=== PATIENT | female | born 1995 | race African-American/Black ===

== ENCOUNTER 2017-04-02 00:22 | Emergency (ER) | payer MEDICAID, OTHER ==
--- NOTE | 2017-04-02 02:19 | ER Document Report ---
ED General - General Chief Complaint: Pain All Over Stated Complaint: CHEST PAIN,HEADACHE Time Seen by Provider: 04/02/17 02:03 Notes: Patient is a 21-year-old female comes emergency department for chief complaint of pains in her chest, headache, and pain in both knees that started yesterday. She states the pain in her chest is the reason she came, she states it is intermittent, sharp, the middle of her chest, nonradiating, and comes and goes randomly. She states when it is hurting she feels like her heart rate is elevated. She denies shortness of breath, nausea or vomiting, fever chills, cough. She states that occasionally she will feel lightheaded as well. She denies any daily medications, she states she took ibuprofen for pain. She denies any recreational drugs. Mother at bedside. TRAVEL OUTSIDE OF THE [place] IN LAST 30 DAYS: No - Related Data Allergies/Adverse Reactions: No Known Allergies Allergy (Unverified 11/04/14 21:29) Past Medical History - General Information source: Patient - Social History Smoking Status: Never Smoker Frequency of alcohol use: None Drug Abuse: None Lives with: Family Family History: Reviewed & Not Pertinent Patient has suicidal ideation: No Patient has homicidal ideation: No Renal/ Medical History: Denies: Hx Peritoneal Dialysis Psychiatric Medical History: Reports: Hx Depression - Immunizations Immunizations up to date: Yes Review of Systems - Review of Systems Constitutional: No symptoms reported EENT: No symptoms reported Cardiovascular: See HPI Respiratory: See HPI Gastrointestinal: No symptoms reported Genitourinary: No symptoms reported Female Genitourinary: No symptoms reported Musculoskeletal: See HPI Skin: No symptoms reported Hematologic/Lymphatic: No symptoms reported Neurological/Psychological: No symptoms reported Physical Exam - Vital signs Vitals: Temp Pulse Resp BP Pulse Ox 98.4 F 74 18 126/88 H 100 04/02/17 01:05 04/02/17 01:05 04/02/17 01:05 04/02/17 01:05 04/02/17 01:05 Interpretation: Normal - General General appearance: Appears well, Alert In distress: None - HEENT Head: Normocephalic, Atraumatic Eyes: Normal Pupils: PERRL - Respiratory Respiratory status: No respiratory distress Chest status: Nontender Breath sounds: Normal Chest palpation: Normal - Cardiovascular Rhythm: Regular. No: Tachycardia Heart sounds: Normal auscultation, S1 appreciated, S2 appreciated Murmur: No - Abdominal Inspection: Normal Distension: No distension Bowel sounds: Normal Tenderness: Nontender. No: Tender, Guarding Organomegaly: No organomegaly - Back Back: Normal, Nontender - Extremities General upper extremity: Normal inspection, Nontender, Normal color, Normal ROM , Normal temperature General lower extremity: Normal inspection, Nontender, Normal color, Normal ROM , Normal temperature, Normal weight bearing. No: Rolando's sign - Neurological Neuro grossly intact: Yes Cognition: Normal Orientation: AAOx4 Marion Coma Scale Eye Opening: Spontaneous Marion Coma Scale Verbal: Oriented Marion Coma Scale Motor: Obeys Commands Michael Coma Scale Total: 15 Speech: Normal Motor strength normal: LUE, RUE, LLE, RLE Sensory: Normal - Psychological Associated symptoms: Normal affect, Normal mood - Skin Skin Temperature: Warm Skin Moisture: Dry Skin Color: Normal Course - Re-evaluation Re-evalutation: Patient asymptomatic on my exam, nontender knees, nontender chest, smiling and well-appearing. Normal neurological exam. EKG, chest x-ray, laboratory workup unremarkable. On reexamination patient states that after her left she started having discomfort in her knees and chest again along with a mild headache, although she is asymptomatic again on my reevaluation. Patient has vague random symptoms. Complaining of intermittent joint pain otherwise. No fever, no concerning findings on exam suggesting septic arthritis, blood clot, very low suspicion of ACS or PE based on vital signs, workup, presentation. Patient will be treated with dexamethasone for her generalized symptoms, discussed primary care follow-up, discussed return precautions, patient and mother at bedside state understanding and agreement. - Vital Signs Vital signs: Temp Pulse Resp BP Pulse Ox 98 F 65 18 115/70 100 04/02/17 04:29 04/02/17 04:29 04/02/17 04:29 04/02/17 04:29 04/02/17 04:29 - Laboratory Result Diagrams: 04/02/17 02:32 04/02/17 02:32 Laboratory results interpreted by me: 04/02/17 04/02/17 04/02/17 02:32 02:32 02:32 MCV 79 L MCH 26.2 L Chloride 108 H Urine Blood MODERATE H Discharge - Discharge Clinical Impression: Chest pain of uncertain etiology Joint pain Qualifiers: Joint pain location: unspecified Qualified Code(s): M25.50 - Pain in unspecified joint Condition: Stable Disposition: HOME, SELF-CARE Additional Instructions: Your workup tonight, evaluation, and vital signs do not show any concerning abnormalities. You have been treated with dexamethasone for your symptoms. You can continue to take ibuprofen at home. Stay hydrated. Follow-up with primary care for additional evaluation and management. Return to the emergency department for any concerning or worsening symptoms including difficulty breathing, fever of 100.4 or greater, vomiting, or any other concerning or worsening symptoms. Referrals: GHADA CEDILLO DO [Primary Care Provider] - Follow up as needed
[2017-04-02 02:41] LABS: ABSOLUTE EOSINOPHILS # (AUTO) 0.1 10^3/uL (0.0-0.6); ABSOLUTE LYMPHOCYTES (AUTO) 1.2 10^3/uL (0.5-4.7); ABSOLUTE MONOCYTES (AUTO) 0.4 10^3/uL (0.1-1.4); ABSOLUTE NEUT (AUTO) 2.8 10^3/uL (1.7-8.2); BASOPHILS % (AUTO) 0.6 % (0-2); EOSINOPHILS % (AUTO) 1.6 % (0-6); HEMATOCRIT 39.6 % (36.0-47.0); HEMOGLOBIN 13.1 g/dL (12.0-15.5); LYMPHOCYTES % (AUTO) 26.7 % (13-45); MEAN CORPUSCULAR HEMOGLOBIN 26.2 pg (27.0-33.4); MEAN CORPUSCULAR HGB CONC 33.1 g/dL (32.0-36.0); MEAN CORPUSCULAR VOLUME 79 fl (80-97); MONOCYTES % (AUTO) 8.6 % (3-13); PLATELET COUNT 159 10^3/uL (150-450); RED CELL DISTRIBUTION WIDTH 12.4 % (11.5-14.0); SEGMENTED NEUTROPHILS % (AUTO) 62.5 % (42-78); TOTAL CELLS COUNTED % (AUTO) 100 %; WHITE BLOOD COUNT 4.4 10^3/uL (4.0-10.5)
[2017-04-02 03:04] LABS: APPEARANCE,URINE CLEAR; BILIRUBIN,URINE NEGATIVE (NEGATIVE); COLOR,URINE YELLOW; GLUCOSE, URINE NEGATIVE (NEGATIVE); KETONES,URINE NEGATIVE (NEGATIVE); LEUKOCYTE ESTERASE,URINE NEGATIVE (NEGATIVE); NITRITE,URINE NEGATIVE (NEGATIVE); PROTEIN,URINE NEGATIVE (NEGATIVE); URINE SPECIFIC GRAVITY 1.014; UROBILINOGEN,URINE NEGATIVE mg/dL (<2.0)
[2017-04-02 03:08] LABS: ALANINE AMINOTRANSFERASE 28 U/L (5-35); ALBUMIN 3.9 g/dL (3.7-5.6); ALKALINE PHOSPHATASE 67 U/L (50-135); ANION GAP 10 (5-19); ASPARTATE AMINO TRANSFERASE 18 U/L (5-30); BILIRUBIN,DIRECT 0.3 mg/dL (0.0-0.4); BILIRUBIN,TOTAL 0.5 mg/dL (0.2-1.3); BLOOD UREA NITROGEN 8 mg/dL (7-20); CALCIUM 9.3 mg/dL (8.4-10.2); CARBON DIOXIDE 23 mmol/L (22-30); CHLORIDE 108 mmol/L (98-107); GLUCOSE 93 mg/dL (75-110); POTASSIUM 3.7 mmol/L (3.6-5.0); SODIUM 140.5 mmol/L (137-145)
[2017-04-02 03:23] LABS: URINE AMPHETAMINES SCREEN NEGATIVE; URINE BARBITURATES SCREEN NEGATIVE; URINE BENZODIAZEPINES SCREEN NEGATIVE; URINE COCAINE SCREEN NEGATIVE; URINE MARIJUANA (THC) SCREEN NEGATIVE; URINE METHADONE SCREEN NEGATIVE; URINE PHENCYCLIDINE SCREEN NEGATIVE
--- NOTE | 2017-04-02 03:41 | RADIOLOGY REPORT (SQ) ---
EXAM DESCRIPTION: CHEST PA/LAT CLINICAL HISTORY: 21 years, Female, chest pain COMPARISON: None. NUMBER OF VIEWS: 2 FINDINGS: Normal lung volume, clear parenchyma, normal cardiac silhouette, and intact bony thorax. IMPRESSION: No acute cardiopulmonary findings.
[2017-04-02] MEDS ORDERED: DEXAMETHASONE SOD PHOS INJ 10 MG/1 ML VIAL IM ONE (04:05)
[2017-04-02 04:31] VITALS: BP 115/70
--- NOTE | 2017-04-02 09:50 | EKG REPORT ---
SEVERITY:- NORMAL ECG - SINUS RHYTHM : Confirmed by: Sirena Roberts 02-Apr-2017 09:49:12
== END 2017-04-02 04:29 | disposition home or self-care (01) ==
LOC: ER 00:22
DX: R07.9 Chest pain, unspecified (principal); M25.50 Pain in unspecified joint; M79.1 Myalgia; R51 Headache
CPT/HCPCS: 93005; 99285; 96372; 36415; 85025; 81025; 80053; 81001; 80307; 71046; 93010; J1100